=== PATIENT | male | born 1980 | race Caucasian/White ===

== ENCOUNTER → 2023-10-17 10:33 | Outpatient (CLI) | payer BC, SELFPAY ==
--- NOTE | ~2023-10-17 | US_ITS ---
Testicular ultrasound with doppler. Indication: Testicular lesion. Technique: Real-time sonography the scrotum was performed. Color flow Doppler and Doppler spectral an alysis were performed. Findings: The testes are homogeneous in echotexture bilaterally. There is no evidence of an intrates ticular mass. The right testis measures 3.6 x 3.1 x 2.2 cm and the left 4.5 x 2.8 x 2.3 cm. There is color-flow seen to both testes. Arterial and venous spectral waveforms are seen in both testes. There is no sonographic evidence of torsion. The head of the epididymis is visualized bilaterally and is within normal limits. There is a 0.8 x 0.4 cm hypoechoic lesion at the right epididymal tail region. Minimal right hydrocele present. Impression: 0.8 x 0.4 cm hypoechoic extratesticular lesion, probably at the right epididymal tail. Sonographic ap pearance is nonspecific. Most epididymal lesions are benign. Consider follow-up exam in 3-6 months. C orrelate clinically. Reviewed, dictated and finalized at location . [employer] Impression: 0.8 x 0.4 cm hypoechoic extratesticular lesion, probably at the right epididyma l tail. Sonographic appearance is nonspecific. Most epididymal lesions are rufino gn. Consider follow-up exam in 3-6 months. Correlate clinically.
== END ==
PROVIDERS: PCP Student in an Organized Health Care Education/Training Program; Visit Provider Student in an Organized Health Care Education/Training Program
DX: N50.9 Disorder of male genital organs, unspecified (principal)
CPT/HCPCS: 76870; 93976